=== PATIENT | female | born 1995 | race Two or more races ===

== ENCOUNTER 2020-04-25 11:00 | Inpatient (IN) | payer OTHER ==
[~2020-04-25] VITALS: Ht 154.9 cm; Wt 76.2 kg
[2020-05-06] MEDS ORDERED: PRENATAL TABLE1 EAC1 PO (13:00)
[2020-05-06] MEDS ORDERED: FOLIC ACID20 MG PO (13:00)
== END 2020-05-08 11:30 | disposition home or self-care (01) | DRG 807 ==
LOC: LDR 05-06 12:36 → OB/GYN 05-06 15:56
PROVIDERS: ADMIT Specialist; ATTEND Specialist
PROC: 10E0XZZ Delivery of Products of Conception, External Approach (ICD-10-PCS; principal; 2020-05-06)
PROC: 0HQ9XZZ Repair Perineum Skin, External Approach (ICD-10-PCS; 2020-05-06)
PROC: 10907ZC Drainage of Amniotic Fluid, Therapeutic from Products of Conception, Via Natural or Artificial Opening (ICD-10-PCS; 2020-05-06)
PROC: 4A1HXFZ Monitoring of Products of Conception, Cardiac Rhythm, External Approach (ICD-10-PCS; 2020-05-06)
DX: O70.0 First degree perineal laceration during delivery (principal); Z37.0 Single live birth; Z3A.39 39 weeks gestation of pregnancy; Z20.828 Contact with and (suspected) exposure to other viral communicable diseases

== ENCOUNTER 2024-11-02 07:24 | Outpatient (CLI) | payer OTHER ==
[~2024-11-02 07:24] MED LIST: FOLIC ACID20 MG PO; PRENATAL TABLE1 EAC1 PO
== END 2024-11-02 07:36 | disposition home or self-care (01) ==
LOC: MRI 07:24
PROVIDERS: ATTEND Obstetrics & Gynecology
DX: E22.1 Hyperprolactinemia (principal)
CPT/HCPCS: 70553